=== PATIENT | female | born 1935 | race Caucasian/White ===

== ENCOUNTER 2023-11-07 17:11 | Inpatient (IN) | payer OTHER ==
[~2023-11-07] VITALS: Ht 154.9 cm; Wt 44.0 kg
[2023-11-07] MEDS ORDERED: NA P RC (20:59)
[2023-11-07] MEDS ORDERED: MULT-2253 PO (20:59)
[2023-11-07] MEDS ORDERED: ACET-2619 PO (20:59)
[2023-11-07] MEDS ORDERED: DOCU-299 PO (20:59)
[2023-11-07] MEDS ORDERED: MAGN400S60 PO (20:59)
[2023-11-07] MEDS ORDERED: BISA-213 RC (20:59)
[2023-11-07] MEDS ORDERED: HYDROcodone/APAP 5/325 MG 1 TAB TAB PO PRN (22:50)
[2023-11-07] MEDS ORDERED: POTASSIUM CHLORIDE 10 MEQ TABER PO PRN (22:50)
[2023-11-07] MEDS ORDERED: MORPHINE SULFATE 4 MG/ML SYR IVP PRN (22:50)
[2023-11-07] MEDS ORDERED: KCL 20 MEQ IN 100 mL PREMIX 200 ML IV PRN (22:50)
[2023-11-07] MEDS ORDERED: MAG SULF 2000 MG/WATER PREMIX 50 ML IV PRN (22:50)
[2023-11-07] MEDS: NACL 0.9% 1,000 ML IV SCH (22:50)
[2023-11-07] MEDS ORDERED: MAGNESIUM OXIDE 400 MG TAB PO PRN (22:50)
[2023-11-07] MEDS ORDERED: ACETAMINOPHEN 325 MG TAB PO PRN (22:50)
[2023-11-07] MEDS ORDERED: ONDANSETRON 4 MG/2 ML VIAL IVP PRN (22:50)
[2023-11-07 23:30] VITALS: BP 146/53; PULSE 75; RESP 18; TEMP 98.4; O2SAT 96
[2023-11-08 04:00] VITALS: BP 151/59; PULSE 73; RESP 18; TEMP 97.1; O2SAT 96
[2023-11-08 08:00] VITALS: BP 142/81; PULSE 75; RESP 18; TEMP 97.8; O2SAT 96
[2023-11-08] MEDS: DOCUSATE SODIUM 100 MG GELCAP PO SCH (09:00)
[2023-11-08 09:03] VITALS: PULSE 75; RESP 16; O2SAT 95
[2023-11-08] MEDS: NACL 0.9% 1,000 ML IV SCH ×2 (11:20→23:50)
[2023-11-08 16:00] VITALS: BP 176/72; PULSE 74; RESP 18; TEMP 98.2; O2SAT 96
[2023-11-08 20:00] VITALS: BP 148/73; PULSE 85; RESP 18; TEMP 97.5; O2SAT 97
[2023-11-09 04:00] VITALS: BP 113/71; PULSE 70; PULSE 73; RESP 18; TEMP 97; TEMP 97.8; O2SAT 95; O2SAT 97
[2023-11-09 06:36] LABS: BASOPHILS % (AUTO) 0.7 % (0.0-2.0); EOSINOPHILS # (AUTO) 0.1 K/uL (0-0.4); EOSINOPHILS % (AUTO) 1.9 % (0.0-4.0); HEMOGLOBIN 10.4 g/dL (12.0-16.0); LYMPHOCYTES # (AUTO) 2.2 K/uL (2.5-16.5); LYMPHOCYTES % (AUTO) 36.2 % (20.5-51.1); MEAN CORPUSCULAR HEMOGLOBIN 30 pg (27-31); MEAN CORPUSCULAR HGB CONC 35 g/dL (33-37); MONOCYTES # (AUTO) 0.6 K/uL (0.8-1.0); MONOCYTES % (AUTO) 9.5 % (1.7-9.3); NEUTROPHILS # (AUTO) 3.1 K/uL (1.8-7.7); NEUTROPHILS % (AUTO) 51.7 % (42.2-75.2); PLATELET COUNT (AUTO) 203 K/uL (140-450); RED BLOOD CELL COUNT(AUTO) 3.45 MIL/uL (4.20-5.40); RED CELL DISTRIBUTION WIDTH 16.7 % (11.6-13.7)
[2023-11-09 07:33] LABS: ANION GAP 15.2 (8-16); CALCIUM 8.9 mg/dL (8.5-10.1); CARBON DIOXIDE 23.7 mmol/L (21-32); CHLORIDE 102 mmol/L (98-107); GLUCOSE 80 mg/dL (74-106); POTASSIUM 3.9 mmol/L (3.5-5.1); SODIUM SERUM 137 mmol/L (136-145); UREA NITROGEN, BLOOD 31 mg/dL (7-18)
[2023-11-09 07:43] LABS: ALANINE AMINOTRANSFERASE 17 U/L (12-78); ALBUMIN 3.1 g/dL (3.4-5.0); ALKALINE PHOSPHATASE 88 U/L (50-136); ASPARTATE AMINOTRANSFERASE 10 U/L (15-37); MAGNESIUM 2.1 mg/dL (1.8-2.4); TOTAL PROTEIN, SERUM 7.5 g/dL (6.4-8.2)
[2023-11-09 08:00] VITALS: BP 118/95; PULSE 60; RESP 18; TEMP 97.6; O2SAT 100
[2023-11-09] MEDS: DOCUSATE SODIUM 100 MG GELCAP PO SCH (09:00)
[2023-11-09 10:18] LABS: TOTAL BILIRUBIN 0.3 mg/dL (0.0-1.0)
[2023-11-09] MEDS: NACL 0.9% 1,000 ML IV SCH (12:20)
[2023-11-09 16:00] VITALS: BP 159/78; PULSE 74; RESP 18; TEMP 98; O2SAT 97
[2023-11-09 20:00] VITALS: BP 160/85; PULSE 74; PULSE 88; RESP 18; TEMP 97.8; O2SAT 95; O2SAT 98
[2023-11-10] MEDS: NACL 0.9% 1,000 ML IV SCH ×2 (00:50→13:20)
[2023-11-10 04:32] VITALS: BP 155/88; PULSE 88; RESP 18; TEMP 97.8; O2SAT 97
[2023-11-10 06:16] LABS: BASOPHILS % (AUTO) 0.7 % (0.0-2.0); EOSINOPHILS # (AUTO) 0.1 K/uL (0-0.4); EOSINOPHILS % (AUTO) 1.1 % (0.0-4.0); HEMATOCRIT 31.6 % (36-48); HEMOGLOBIN 10.9 g/dL (12.0-16.0); LYMPHOCYTES # (AUTO) 2.1 K/uL (2.5-16.5); LYMPHOCYTES % (AUTO) 31.9 % (20.5-51.1); MEAN CORPUSCULAR HEMOGLOBIN 30 pg (27-31); MEAN CORPUSCULAR HGB CONC 35 g/dL (33-37); MEAN CORPUSCULAR VOLUME 86.6 fL (80-94); MONOCYTES # (AUTO) 0.9 K/uL (0.8-1.0); MONOCYTES % (AUTO) 12.9 % (1.7-9.3); NEUTROPHILS # (AUTO) 3.6 K/uL (1.8-7.7); NEUTROPHILS % (AUTO) 53.4 % (42.2-75.2); PLATELET COUNT (AUTO) 218 K/uL (140-450); RED BLOOD CELL COUNT(AUTO) 3.65 MIL/uL (4.20-5.40); RED CELL DISTRIBUTION WIDTH 15.9 % (11.6-13.7); WHITE BLOOD COUNT (AUTO) 6.7 K/uL (4.8-10.8)
[2023-11-10 06:43] LABS: ALANINE AMINOTRANSFERASE 12 U/L (12-78); ALBUMIN 3.2 g/dL (3.4-5.0); ALKALINE PHOSPHATASE 105 U/L (50-136); ANION GAP 14.6 (8-16); ASPARTATE AMINOTRANSFERASE 14 U/L (15-37); CARBON DIOXIDE 24.4 mmol/L (21-32); CHLORIDE 102 mmol/L (98-107); CREATININE 1.1 mg/dL (0.6-1.3); GLUCOSE 86 mg/dL (74-106); MAGNESIUM 2.1 mg/dL (1.8-2.4); SODIUM SERUM 137 mmol/L (136-145); TOTAL BILIRUBIN 0.6 mg/dL (0.0-1.0); TOTAL PROTEIN, SERUM 8.4 g/dL (6.4-8.2); UREA NITROGEN, BLOOD 32 mg/dL (7-18)
[2023-11-10 08:00] VITALS: BP 137/75; PULSE 70; RESP 16; TEMP 97.9; O2SAT 97
[2023-11-10] MEDS: DOCUSATE SODIUM 100 MG GELCAP PO SCH (09:00)
== END 2023-11-10 14:05 | DRG 682 ==
LOC: MTU 20:00
PROVIDERS: ADMIT Hospitalist; ATTEND Hospitalist
DX: N17.9 Acute kidney failure, unspecified (principal); G93.41 Metabolic encephalopathy; F03.90 Unspecified dementia, unspecified severity, without behavioral disturbance, psychotic disturbance, mood disturbance, and anxiety; N18.9 Chronic kidney disease, unspecified; F41.9 Anxiety disorder, unspecified; I12.9 Hypertensive chronic kidney disease with stage 1 through stage 4 chronic kidney disease, or unspecified chronic kidney disease
CPT/HCPCS: 36415; 80053; 83735; 85025; 87081; 97112; 97163-GP; 97530; J1644